=== PATIENT | female | born 1990 | race Caucasian/White ===

== ENCOUNTER 2020-06-09 15:56 | Emergency (ER) | payer MEDICAID ==
[~2020-06-09] VITALS: Ht 165.1 cm; Wt 90.0 kg
[2020-06-09 16:17] VITALS: BP 145/93
== END 2020-06-09 19:24 | disposition left against medical advice (07) ==
LOC: ER 15:57
DX: K08.89 Other specified disorders of teeth and supporting structures (principal); Z53.21 Procedure and treatment not carried out due to patient leaving prior to being seen by health care provider